=== PATIENT | male | born 1995 | race Hispanic/Latino ===

== ENCOUNTER 2019-10-30 01:38 | Inpatient (IN) | payer OTHER ==
[~2019-10-30] VITALS: Ht 170.2 cm; Wt 77.1 kg
[2019-10-30] VITALS (7 sets, daily range): BP systolic 112–152; BP diastolic 60–78
[2019-10-30] MEDS ORDERED: ONDANSETRON HCL INJ 2MG/ML 2ML 2 MG/ML VIAL IV STA (01:44)
[2019-10-30] MEDS ORDERED: KETOROLAC TROMETHAMINE 30 MG/ML VIAL IV STA (01:44)
[2019-10-30] MEDS ORDERED: SODIUM CHLORIDE 0.9% 1000ML 1,000 ML IV SCH ×2 (01:45→02:00)
[2019-10-30] MEDS ORDERED: SODIUM CHLORIDE 0.9% 50ML 50 ML ONE (01:59)
[2019-10-30] MEDS ORDERED: DIATRIZOATE MEGL/DIATRIZOA SOD 30 ML BTL PO ONE (01:59)
[2019-10-30] MEDS ORDERED: IOPAMIDOL 370 MG/ML 200 ML INFUS..BTL INJ ONE (02:00)
--- NOTE | 2019-10-30 02:15 | NUR ---
PT REFUSED ZOFRAN AND TORADOL AT THIS TIME. PT DRINKING CONTRAST WITHOUT DIFF.
--- NOTE | 2019-10-30 02:22 | NUR ---
COMPLETED DRINKING CONTRAST.
[2019-10-30] MEDS ORDERED: POTASSIUM CHLORIDE 10MEQ/100ML 100 ML IV ONE ×3 (02:45)
--- NOTE | 2019-10-30 03:20 | NUR ---
1ST IV NS 1L INFUSION COMPLETED
--- NOTE | 2019-10-30 03:33 | NUR ---
STOPPED IV FLUIDS PT TO CT AT THIS TIME
--- NOTE | 2019-10-30 03:57 | NUR ---
RESTARTED FLUIDS ON PT ARRIVAL BACK TO ROOM
--- NOTE | 2019-10-30 04:21 | Diagnostic Imaging Report ---
EXAM: CT Abdomen and Pelvis WITH contrast INDICATION: Right-sided Abdominal pain COMPARISON: None. TECHNIQUE: Abdomen and pelvis were scanned utilizing a multidetector helical scanner from the lung base to the pubic symphysis after administration of IV contrast. Coronal and sagittal reformations were obtained. Routine protocol was performed. Scan was performed when during portal venous phase. IV CONTRAST: 100 mL of Isovue 370 ORAL CONTRAST: Gastrografin COMPLICATIONS: None RADIATION DOSE: Total DLP: 649 mGy*cm Estimated effective dose: (DLP x 0.015 x size factor) mSv CTDIvol has been reviewed. It is below the limits set by the Radiation Protocol Committee (RPC). Dose modulation, iterative reconstruction, and/or weight based adjustment of the mA/kV was utilized to reduce the radiation dose to as low as reasonably achievable. FINDINGS: LINES and TUBES: None. LOWER THORAX: Unremarkable HEPATOBILIARY: No focal hepatic lesions. No biliary ductal dilation. GALLBLADDER: No radio-opaque stones or sludge. No wall thickening. SPLEEN: No splenomegaly. PANCREAS: No focal masses or ductal dilatation. ADRENALS: No adrenal nodules KIDNEYS/URETERS: Kidneys enhance symmetrically. No hydronephrosis. No cystic or solid mass lesions. No stones. GI TRACT: No abnormal distention or evidence of bowel obstruction. Appendix is enlarged, 1 cm in outer diameter, fluid-filled, and surrounded by periappendiceal fat stranding. PELVIC ORGANS/BLADDER: Unremarkable. LYMPH NODES: No lymphadenopathy. VESSELS: Unremarkable. PERITONEUM / RETROPERITONEUM: Trace free fluid in the right lower quadrant: No free air . BONES: Unremarkable. SOFT TISSUES: There is a fat containing para-umbilical hernia. IMPRESSION: Acute nonperforated appendicitis. Impression discussed with Dr. Nelson at 4:14 AM on 10/30/[address] Gresham via telephone. Signed by: Gage Gresham DO on 10/30/2019 4:18 AM
[2019-10-30] MEDS ORDERED: PIPER-TAZ 3.375 GM 50 ML IV ONE (04:30)
--- NOTE | 2019-10-30 04:45 | NUR ---
COVID 19 SWAB OBTAINED FROM [facility] WITHOUT DIFF. PPE USED. PT TOLERATED WELL.
--- NOTE | 2019-10-30 05:08 | NUR ---
AWAITING ADMIT ORDERS. PER HE WILL CALL SURGEON AT 0600 FOR ADMIT. AOS AWARE OF NEED FOR BED AND HAS BEEN POSTED
--- NOTE | 2019-10-30 06:10 | NUR ---
PT STATES HE HAS HAD DIARRHEA X3 NOW
[2019-10-30] MEDS ORDERED: ONDANSETRON HCL INJ 2MG/ML 2ML 2 MG/ML VIAL IV PRN (06:15)
[2019-10-30] MEDS ORDERED: KETOROLAC TROMETHAMINE 30 MG/ML VIAL ONE ×2 (06:15→18:19)
--- OUTSIDE RECORDS SUMMARY | 2019-10-30 06:17 | XMS REPORT ---
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 Allergies, Adverse Reactions, Alerts This patient has no known allergies or adverse reactions. Medications This patient has no known medications. Results Test Description Test Time Test Comments Text Results Atomic Results Result Comments CT ABD/PEL WITH CONTRAST-HOPD 2019-10-30 04:11:00 [place] [address] Patient Name: YULI SYED MR #: [id number] : 1995 Age/Sex: 23/M Req #: [id number] Adm Physician: Ordered by: YODIT PURCELL MD Report #: [id number] Location: [facility] Room/Bed: Procedure: [id number] HOPD/CT ABD/PEL WITH CONTRAST-HOPD Exam Date: 10/30/19 Exam Time: 0339 REPORT STATUS: Signed EXAM: CT Abdomen and Pelvis WITH contrast INDICATION: Right-sided Abdominal pain COMPARISON: None. TECHNIQUE: Abdomen and pelvis were scanned utilizing a multidetector helical scanner from the lung base to the pubic symphysis after administration of IV contrast. Coronal and sagittal reformations were obtained. Routine protocol was performed. Scan was performed when during portal venous phase. IV CONTRAST: 100 mL of Isovue 370 ORAL CONTRAST: Gastrografin COMPLICATIONS: None RADIATION DOSE: Total DLP: 649 mGy*cm Estimated effective dose: (DLP x 0.015 x size factor) mSv CTDIvol has been reviewed. It is below the limits set by the Radiation Protocol Committee (RPC). Dose modulation, iterative reconstruction, and/or weight based adjustment of the mA/kV was utilized to reduce the radiation dose to as low as reasonably achievable. FINDINGS: LINES and TUBES: None. LOWER THORAX: Unremarkable HEPATOBILIARY: No focal hepatic lesions. No biliary ductal dilation. GALLBLADDER: No radio-opaque stones or sludge. No wall thickening. SPLEEN: No splenomegaly. PANCREAS: No focal masses or ductal dilatation. ADRENALS: No adrenal nodules KIDNEYS/URETERS: Kidneys enhance symmetrically. No hydronephrosis. No cystic or solid mass lesions. No stones. GI TRACT: No abnormal distention or evidence of bowel obstruction. Appendix is enlarged, 1 cm in outer diameter, fluid-filled, and surrounded by periappendiceal fat stranding. PELVIC ORGANS/BLADDER: Unremarkable. LYMPH NODES: No lymphadenopathy. VESSELS: Unremarkable. PERITONEUM / RETROPERITONEUM: Trace free fluid in the right lower quadrant: No free air . BONES: Unremarkable. SOFT TISSUES: There is a fat containing para-umbilical hernia. IMPRESSION: Acute nonperforated appendicitis. Impression discussed with Dr. Nelson at 4:14 AM on 10/30/[address] Gresham via telephone. Signed by: Gage Gresham DO on 10/30/2019 4:18 AM Dictated By: GAGE GRESHAM DO 7 Transcribed By: MAY on 10/30/19417 COPY TO: YODIT PURCELL MD
--- NOTE | 2019-10-30 07:09 | NUR ---
REPORT TO RAQUEL COTTON, AND TO EMS
--- NOTE | 2019-10-30 07:22 | NUR ---
Received patient from free standing ER via stretcher. AAOX4 to time, person, place, situation. Respirations even and unlabored. Oriented patient to room. Instructed to use call light for assistance. Voiced understanding. Will continue to monitor.
[2019-10-30] MEDS: PIPER-TAZ 3.375 GM 50 ML IV SCH ×3 (08:25→21:10)
[2019-10-30] MEDS: D5.45%NS/KCL 20MEQ 1,000 ML IV SCH ×3 (08:25→22:15)
[2019-10-30] MEDS ORDERED: PIPER-TAZ 3.375 GM / NS 50ML IV SCH (10:30)
[2019-10-30] MEDS ORDERED: BUPIVACAINE 0.5%/EPI 30 ML SDV INJ ONE (13:10)
[2019-10-30] MEDS ORDERED: PIPER-TAZ 3.375 GM 50 ML ONE (14:45)
[2019-10-30] MEDS ORDERED: ACETAMINOPHEN 1000 MG/100 ML IV PRN (15:00)
[2019-10-30] MEDS ORDERED: HYDROCODONE/APAP 7.5MG-325MG 1 EA TAB PO PRN (15:00)
[2019-10-30] MEDS ORDERED: FENTANYL CITRATE/PF 100MCG/2 ML INJ ONE ×3 (15:47→17:10)
--- NOTE | 2019-10-30 16:30 | NUR ---
Back from procedure. AAOX3 to time, person, place, situation. Respirations even and unlabored. 3 trochar sites with bandaid. Site clean, dry, and intact.
[2019-10-30] MEDS ORDERED: MIDAZOLAM HCL 2 MG/2 ML VIAL ONE (17:10)
[2019-10-30] MEDS: MORPHINE SULFATE INJ 4 MG/ML INJ 1ML IV PRN (17:59)
[2019-10-30] MEDS ORDERED: ACETAMINOPHEN 1000 MG/100 ML IV ONE (18:19)
[2019-10-30] MEDS ORDERED: DESFLURANE 240 ML BTL INH ONE (18:19)
[2019-10-30] MEDS ORDERED: PROPOFOL IV EMULSION 10 MG/ML 20 ML VIAL ONE (18:19)
[2019-10-30] MEDS ORDERED: LIDOCAINE HCL 2% LOCAL INJ 5 ML SDV VIAL INJ ONE (18:19)
[2019-10-30] MEDS ORDERED: DEXAMETHASONE SOD PHOS INJ 4 MG/ML VIAL ONE (18:19)
[2019-10-30] MEDS ORDERED: ONDANSETRON HCL INJ 2MG/ML 2ML 2 MG/ML VIAL ONE (18:19)
[2019-10-30] MEDS ORDERED: NEOSTIGMINE 1 MG/ML 10ML VIAL ONE (18:19)
[2019-10-30] MEDS ORDERED: ROCURONIUM BROMIDE 10 MG/ML 5ML VIAL IV ONE (18:19)
[2019-10-30] MEDS ORDERED: GLYCOPYRROLATE INJ 0.2 MG/ML VIAL ONE (18:19)
--- NOTE | 2019-10-30 19:19 | Operative Report ---
DATE OF PROCEDURE: 10/30/2019 SURGEON: Oracio Brooks MD PREOPERATIVE DIAGNOSIS: Acute appendicitis. POSTOPERATIVE DIAGNOSIS: Acute appendicitis. OPERATION PERFORMED: Laparoscopic appendectomy. DERRICK MAN: HERMES Holland. ANESTHESIA: General. COMPLICATIONS: None. ESTIMATED BLOOD LOSS: Minimal. DESCRIPTION OF PROCEDURE: With the patient lying in bed in the supine position under good general endotracheal anesthesia, the abdomen was prepped with Betadine solution and draped in the usual manner. A Veress needle was introduced into the umbilicus and pneumoperitoneum was established without any difficulty. A 12 mm trocar was placed into the umbilicus and a 5 mm video laparoscope was placed into the intraabdominal cavity. Under direct vision, a 5 mm trocar was placed in the suprapubic region and another one in the left lower abdomen, and a 4th one was placed in the right upper quadrant. Laparoscopy at this point, revealed an acutely inflamed, non-perforated appendix, there was a little bit of purulent fluid in the abdominal cavity, which was all aspirated. The base of the appendix was then dissected free and divided with an application of the Endo-LORENA stapler. The mesentery of the appendix was similarly divided with an application of the Endo-LORENA vascular stapler. The appendix was placed in a pouch and removed through the umbilicus without any difficulty. Video laparoscopy was then again carried out. All the staple lines were intact. There was no bleeding. The abdomen was then irrigated with dilute saline solution and all of the fluid was aspirated, making sure that all of the fluid particularly in the cul-de-sac had been fully aspirated. The area was inspected for bleeding again and there was none. The pneumoperitoneum was then evacuated and all the trocars were removed under direct vision. The midline fascia at the umbilicus was then closed with a [id number] of 0 Vicryl. All layers were infiltrated on the way out with solution of 0.25% Marcaine. Subcutaneous tissue was approximated with 3-0 Vicryl and the skin was closed with subcuticular 5-0 Vicryl. Benzoin, Steri-Strips, and Band-Aids were applied. The sponge, lap, and needle counts were correct. The patient tolerated the procedure well and returned to the recovery room in stable condition. MD TO Lizarraga/TERESA /[id number]
--- NOTE | 2019-10-30 21:13 | NUR ---
Resting in bed. No s/s of acute distress noted. Side rails upx2, call light within reach. Report to be given to oncoming nurse.
[2019-10-31] VITALS (7 sets, daily range): BP systolic 111–131; BP diastolic 54–68
[2019-10-31] MEDS: PIPER-TAZ 3.375 GM 50 ML IV SCH ×3 (04:00→16:59)
[2019-10-31] MEDS: D5.45%NS/KCL 20MEQ 1,000 ML IV SCH ×2 (06:04→14:50)
[2019-10-31 06:51] LABS: BASOPHILS % 0.3 % (0.0-1.0); HEMATOCRIT 42.6 % (38.2-49.6); HEMOGLOBIN 14.3 g/dL (14.0-18.0); LYMPHOCYTES # (AUTO) 1.2 (1.0-3.2); LYMPHOCYTES % 10.6 % (18.0-39.1); MEAN CORPUSCULAR HEMOGLOBIN 31.1 pg (28-32); MEAN CORPUSCULAR HGB CONC 33.6 g/dL (31-35); MEAN CORPUSCULAR VOLUME 92.6 fL (81-99); MONOCYTES # (AUTO) 0.9 (0.2-0.8); MONOCYTES % 7.9 % (4.4-11.3); NEUTROPHILS # (AUTO) 8.8 (2.1-6.9); NEUTROPHILS % 80.8 % (38.7-80.0); PLATELET COUNT 231 x10e3/uL (140-360); RED CELL DISTRIBUTION WIDTH 12.6 % (11.7-14.4)
[2019-10-31 07:32] LABS: ANION GAP 13.9 mmol/L (8-16); BLOOD UREA NITROGEN 6 mg/dL (7-26); BUN/CREATININE RATIO 7 (6-25); CALCIUM 9.1 mg/dL (8.4-10.2); CARBON DIOXIDE 22 mmol/L (22-29); CHLORIDE 106 mmol/L (98-107); CREATININE, SERUM 0.89 mg/dL (0.72-1.25); EST GLOMERULAR FILTRATION RATE > 60 ML/MIN (60-); GLUCOSE 107 mg/dL (74-118); POTASSIUM 3.9 mmol/L (3.5-5.1); SODIUM 138 mmol/L (136-145)
[2019-10-31] MEDS: MORPHINE SULFATE INJ 4 MG/ML INJ 1ML IV PRN (15:45)
--- NOTE | 2019-10-31 17:40 | NUR ---
DR. BRUNER HERE TO SEE PT
--- NOTE | 2019-10-31 18:18 | NUR ---
pt discharged, home with family members, pt given prescription and medications and pt was educated on medications, pt iv site removed no swelling no redness to site. was asked to follow up in 1 week.
== END 2019-10-31 18:12 | disposition home or self-care (01) | DRG 343 ==
LOC: FSED 01:38 → ERHOLD 06:08 → MED/SURG2 07:22
PROVIDERS: ADMIT Surgery; ATTEND Surgery
PROC: 0DTJ4ZZ Resection of Appendix, Percutaneous Endoscopic Approach (ICD-10-PCS; principal; 2019-10-30 13:49)
DX: K35.80 Unspecified acute appendicitis (principal); E87.6 Hypokalemia
CPT/HCPCS: 36415; 74177; 80048; 80053; 81003; 85025; 87635; 88304; 96365; 96374; 99284; C1766; J1100; J1885; J2001; J2250; J2270; J2405; J2543; J2710; J3010; J3480; J7030; Q9967